=== PATIENT | male | born 1980 | race Caucasian/White ===

== ENCOUNTER → 2017-01-20 | Day surgery (SDC) | payer OTHER ==
[~2017-01-20] VITALS: Ht 182.9 cm; Wt 70.1 kg
[~2017-01-20] MED LIST: BACL10TA PO; BACL20TA PO; BISA10SU3 RECTAL; CEPH-459 PO; CHLORHEXIDINE GLUCONATE 2 % 1 PACK (2 CLOTHS) TOPICAL PRN; CIAL10TA PO; DO NOT ADM ANY ANTICOAGULANT DRUGS PRN; HYDR-3533 PO; INSULIN HUMAN REGULAR 1,000 UNITS/10 ML VIAL SQ PRN; LACTATED RINGER'S 1000 ML INJ 1,000 ML IV ONE; METOPROLOL TARTRATE 25 MG TAB PO PRN; MIRA50TA PO; MOBI15TA PO; NITR50CA27 PO; ONABOTULINUMTOXINA INJ 100 UNITS/VIAL ONE; ONDANSETRON HCL 4 MG/2 ML VIAL IV PUSH ONE; ONDANSETRON HCL 4 MG/2 ML VIAL IV PUSH PRN; POVIDONE IODINE 5% (ANTISEPSIS KIT) 4 APPLICATIONS EACH NARE PRN; PROPOFOL 200 MG/20 ML AMP IV ONE; REST15CA PO; SODIUM CHLORID 0.9% 500 ML IV PRN; SODIUM CHLORIDE 0.9% INJ 100 ML ONE; TIZA2TAB PO; TIZA4TAB PO; ceFAZolin 1,000 MG/NS 100 ML IV SCH; ceFAZolin INJ 1,000 MG VIAL ONE
[2017-01-20 06:37] VITALS: BP 99/54; PULSE 78; RESP 20; TEMP 97.9; O2SAT 96
[2017-01-20] MEDS: LACTATED RINGER'S 1000 ML IV PRN ×2 (06:40→06:42)
[2017-01-20 06:56] LABS: AUTOMATED NEUTROPHIL # 3.1 TH/MM3 (1.8-7.7); BASOPHIL % 0.6 % (0.0-2.0); EOSINOPHIL # 0.3 TH/MM3 (0-0.4); EOSINOPHIL % 5.2 % (0.0-4.0); HEMATOCRIT 43.7 % (39.0-51.0); HEMO FLAGS DIFF FINAL; LYMPH % 25.7 % (9.0-44.0); LYMPHOCYTE # 1.3 TH/MM3 (1.0-4.8); MEAN CELL VOLUME 89.8 FL (80.0-100.0); MEAN CORPUSCULAR HEMOGLOBIN 31.7 PG (27.0-34.0); MEAN CORPUSCULAR HGB CONC 35.3 % (32.0-36.0); MONO % 8.5 % (0.0-8.0); PLATELET COUNT 296 TH/MM3 (150-450); RED BLOOD COUNT 4.86 MIL/MM3 (4.50-5.90); RED CELL DISTRIBUTION WIDTH 12.8 % (11.6-17.2); WHITE BLOOD COUNT 5.1 TH/MM3 (4.0-11.0)
--- NOTE | 2017-01-20 09:26 | PD.OP ---
Operative Report Date of Surgery: Jan 20, 2017 Preoperative Diagnosis: (1) Neurogenic bladder Postoperative Diagnosis: (1) Neurogenic bladder Procedure: Cystoscopy and intravesical Botox injection therapy Anesthesia: General Surgeon: Faraz Ashley Grooming Assistant(s): None Operation and Findings: Indication for procedure: Case of a pleasant 36-year-old gentleman with hyper reflexive neurogenic bladder dysfunction who presents now for repeat intravesical Botox injection therapy to increase his bladder capacity. Operative procedure in detail: Patient was brought to the operating room suite and placed supine on the cystoscopy table. He was then placed under general anesthesia. He was then repositioned in the dorsal lithotomy position and prepped and draped in normal sterile fashion. After appropriate timeout was undertaken have proceeded with cystoscopic evaluation utilizing the rigid cystoscope with the 30 lens and 20 Ecuadorean sheath. The urethra was patent without stricture formation, the prostatic urethra was nonobstructing and further passage of the scope within the bladder failed to demonstrate any significant bladder pathology other than hypertrophy of the detrusor muscle. The alberans bridge was utilized as well as the 4 Ecuadorean flexible injection needle to administer the Botox intravesically. 2 vials of Botox were utilized and reconstituted in normal saline with a concentration of 10 units per cc for a total volume of 20 cc. The Botox injection sites were administered approximate 1 cm apart diffusely throughout the urinary bladder. Care was taken not to administered Botox in vicinity of the ureteral orifices. Once the Botox was administered careful inspection factor bleeding was made and no significant bleeding was noted. A 16 Ecuadorean 10 cc Ham catheter was placed and connected to gravity drainage. The patient tolerated the procedures without complications. Transferred to the PACU in satisfactory condition. Faraz Ashley MD Jan 20, 2017 09:26
[2017-01-20 10:57] VITALS: BP 118/71; PULSE 74; RESP 20; TEMP 97.8; O2SAT 99
== END | disposition home or self-care (01) ==
LOC: HSDC 06:00
PROVIDERS: ATTEND Urology
DX: N31.9 Neuromuscular dysfunction of bladder, unspecified (principal)
CPT/HCPCS: 00910; 52287; 85025; J0585; J0690; J2405; J3010; J7120

== ENCOUNTER → 2017-07-28 | Day surgery (SDC) | payer OTHER ==
[~2017-07-28] VITALS: Ht 182.9 cm; Wt 72.5 kg
[~2017-07-28] MED LIST changes: +ACETAMINOPHEN 1000 MG/100 ML 100 ML IV ONE; +DEXAMETHASONE SOD PHOS 4 MG/ML VIAL IV ONE; +GLYCOPYRROLATE 1 MG/5 ML SYRINGE IV PUSH ONE; -LACTATED RINGER'S 1000 ML INJ 1,000 ML IV ONE; +LACTATED RINGER'S 1000 ML IV PRN; +LIDOCAINE HCL 1% PF 5 ML AMPULE OTHER ONE; +MIDAZOLAM HCL 2 MG/2 ML VIAL IV ONE; -MOBI15TA PO; -NITR50CA27 PO; -ONABOTULINUMTOXINA INJ 100 UNITS/VIAL ONE; +ONABOTULINUMTOXINA INJ 100 UNITS/VIAL PRN; +PERC5TAB12 PO; +ROCURONIUM INJ 50 MG/5 ML SYRINGE IV PUSH ONE; +SODIUM CHLORIDE 0.9% 20 ML VIAL ONE; -SODIUM CHLORIDE 0.9% INJ 100 ML ONE; +SUGAMMADEX SODIUM 200 MG/2 ML VIAL IV PUSH ONE; -ceFAZolin INJ 1,000 MG VIAL ONE; +oxyCODONE/ACETAMINOPHEN 5 MG/325 MG TAB PO PRN
[2017-07-28 07:16] LABS: AUTOMATED NEUTROPHIL # 2.5 TH/MM3 (1.8-7.7); BASOPHIL % 0.4 % (0.0-2.0); EOSINOPHIL # 0.2 TH/MM3 (0-0.4); EOSINOPHIL % 5.1 % (0.0-4.0); HEMATOCRIT 45.2 % (39.0-51.0); HEMOGLOBIN 15.4 GM/DL (13.0-17.0); LYMPH % 29.8 % (9.0-44.0); LYMPHOCYTE # 1.4 TH/MM3 (1.0-4.8); MEAN CORPUSCULAR HEMOGLOBIN 31.6 PG (27.0-34.0); MEAN PLATELET VOLUME 7.7 FL (7.0-11.0); MONO % 10.1 % (0.0-8.0); MONOCYTE # 0.5 TH/MM3 (0-0.9); NEUT % 54.6 % (16.0-70.0); PLATELET COUNT 283 TH/MM3 (150-450); RED BLOOD COUNT 4.85 MIL/MM3 (4.50-5.90); RED CELL DISTRIBUTION WIDTH 12.4 % (11.6-17.2); WHITE BLOOD COUNT 4.6 TH/MM3 (4.0-11.0)
--- NOTE | 2017-07-28 09:12 | PD.OP ---
Operative Report Date of Surgery: Jul 28, 2017 Preoperative Diagnosis: (1) Neurogenic bladder Postoperative Diagnosis: (1) Neurogenic bladder Procedure: He and intravesical Botox injection therapy Anesthesia: General Surgeon: Faraz Ashley Customer Operations Representative(s): None Operation and Findings: Indication for procedure: Case of a pleasant 36-year-old gentleman with history neurogenic bladder dysfunction related to a spinal cord injury who presents today for cystoscopy with Botox injection therapy to increase his bladder filling capacity. Operative procedure in detail: Patient was brought to the operating room suite and placed supine on the or table. He was then placed under general anesthesia. He was then repositioned in the dorsolithotomy position and prepped and draped and also fashion. After appropriate timeout was undertaken I proceeded with cystoscopic evaluation utilizing the rigid cystoscope with the 20 Danish sheath and 30 lens. The urethra was patent without stricture formation, the prostatic urethra was nonobstructing, further passive cystoscope within the urinary bladder revealed both right and left ureteral orifices to be in correct anatomical position effluxing clear yellow urine. The bladder itself was mild to moderately trabeculated. I then proceeded with using the flexible 4 Danish needle and commenced adjuvant vesicle Botox injection therapy. A solution of 100 units of Botox in 10 cc normal saline was utilized and each injection site received approximately 1/2 cc. Each injected site was spaced approximately 1 cm from each other. The posterior, and lateral ortega were injected as well as several injections to the anterior wall. There was minimal bleeding from the injection sites. A total of 200 units of Botox was injected and after the injections were completed a 16 Danish 10 cc Ham catheter was placed and connected to gravity drainage. The patient tolerated the procedures without complications and was transferred to the PACU in satisfactory condition. Faraz Ashley MD Jul 28, 2017 09:12
[2017-07-28 10:30] VITALS: BP 129/64; PULSE 78; RESP 18; TEMP 97.8; O2SAT 100
== END | disposition home or self-care (01) ==
LOC: HSDC 06:05
PROVIDERS: ATTEND Urology
DX: N31.9 Neuromuscular dysfunction of bladder, unspecified (principal); Z01.818 Encounter for other preprocedural examination
CPT/HCPCS: 00910; 52287; 85025; J0131; J0585; J0690; J1100; J2250; J2405; J3010; J7120

== ENCOUNTER → 2017-12-01 | Day surgery (SDC) | payer OTHER ==
[~2017-12-01] VITALS: Ht 182.9 cm; Wt 72.5 kg
[~2017-12-01] MED LIST changes: +*MEPERIDINE 25 MG INJ VIAL PERIprocedural Use ONLY ONE; +ACETAMINOPHEN/HYDROcodone 325 MG/5 MG TAB PO PRN; +BACT800T5 PO; -DEXAMETHASONE SOD PHOS 4 MG/ML VIAL IV ONE; -GLYCOPYRROLATE 1 MG/5 ML SYRINGE IV PUSH ONE; -HYDR-3533 PO; -LIDOCAINE HCL 1% PF 5 ML AMPULE OTHER ONE; +LIDOCAINE HCL 1% PF 5 ML SYRINGE OTHER ONE; -MIDAZOLAM HCL 2 MG/2 ML VIAL IV ONE; +MIDAZOLAM HCL 2 MG/2 ML VIAL ONE; +NORC5TAB PO; +ONABOTULINUMTOXINA INJ 100 UNITS/VIAL ONE; -ONABOTULINUMTOXINA INJ 100 UNITS/VIAL PRN; +ONABOTULINUMTOXINA INJ 100 UNITS/VIAL SCH; +ONDANSETRON HCL 4 MG/2 ML VIAL IV ONE; -ONDANSETRON HCL 4 MG/2 ML VIAL IV PUSH ONE; -PERC5TAB12 PO; -ROCURONIUM INJ 50 MG/5 ML SYRINGE IV PUSH ONE; -SUGAMMADEX SODIUM 200 MG/2 ML VIAL IV PUSH ONE; +TRAM50 PO; -ceFAZolin 1,000 MG/NS 100 ML IV SCH; +ceFAZolin 2 GM PREMIX 50 ML IV SCH; -oxyCODONE/ACETAMINOPHEN 5 MG/325 MG TAB PO PRN; +traMADol HCL 50 MG TAB PO PRN
[2017-12-01 09:34] LABS: AUTOMATED NEUTROPHIL # 2.7 TH/MM3 (1.8-7.7); BASOPHIL % 0.4 % (0.0-2.0); EOSINOPHIL # 0.2 TH/MM3 (0-0.4); EOSINOPHIL % 5.2 % (0.0-4.0); HEMATOCRIT 46.6 % (39.0-51.0); HEMOGLOBIN 16.1 GM/DL (13.0-17.0); LYMPH % 23.5 % (9.0-44.0); LYMPHOCYTE # 1.1 TH/MM3 (1.0-4.8); MEAN CELL VOLUME 92.4 FL (80.0-100.0); MEAN CORPUSCULAR HEMOGLOBIN 31.9 PG (27.0-34.0); MEAN CORPUSCULAR HGB CONC 34.5 % (32.0-36.0); MEAN PLATELET VOLUME 7.8 FL (7.0-11.0); MONO % 9.7 % (0.0-8.0); MONOCYTE # 0.4 TH/MM3 (0-0.9); NEUT % 61.2 % (16.0-70.0); PLATELET COUNT 290 TH/MM3 (150-450); RED BLOOD COUNT 5.04 MIL/MM3 (4.50-5.90); RED CELL DISTRIBUTION WIDTH 12.8 % (11.6-17.2); WHITE BLOOD COUNT 4.5 TH/MM3 (4.0-11.0)
[2017-12-01] MEDS: ceFAZolin 1,000 MG/NS 100 ML IV SCH ×4 (11:19→12:14)
--- NOTE | 2017-12-01 12:04 | PD.OP ---
Operative Report Date of Surgery: Dec 01, 2017 Preoperative Diagnosis: (1) Neurogenic bladder Postoperative Diagnosis: (1) Neurogenic bladder Procedure: Cystoscopy and intravesical Botox injection therapy Anesthesia: General Surgeon: Faraz Ashley Human Resources Advisor(s): None Operation and Findings: Indication for procedures: Case of a pleasant 37-year-old gentleman with neurogenic bladder dysfunction who is presently being managed with intravesical Botox injection therapy to increase his bladder storage capacity. Patient presents today for repeat cystoscopy with Botox injection therapy. Operative procedures in detail: Patient was brought to the operating room suite and placed supine on the cystoscopy table. He was then placed under general anesthesia. He was then repositioned in the dorsal lithotomy position and prepped and draped in normal sterile fashion. After an appropriate timeout was undertaken I proceeded with cystoscopic evaluation utilizing the rigid cystoscope with a 19 Uzbek sheath and 30 lens. The urethra was patent without stricture formation, the prostatic urethra was not obstructed and further passive cystoscope within the bladder revealed both right and left ureteral orifices to be in correct anatomic position draining clear yellow urine. There were no bladder mucosal lesions, calculi or diverticula formation. The bladder itself was mild to moderately trabeculated. I then proceeded with intravesical Botox injections utilizing the Coloplast 5 mm needle. A solution of Botox with 100 units in 10 cc normal saline was utilized. A total of 200 units was administered and incrementally injected throughout the bladder. Each injection site was approximately half of a cc and spaced approximately 1 cm apart. The conclusion of the procedure there was some oozing of blood from the injection sites and a 16 Uzbek 10 cc Ham catheter was placed. The patient tolerated the procedures without complications and was transferred to the PACU in satisfactory condition. Faraz Ashley MD Dec 01, 2017 12:04
[2017-12-01 13:40] VITALS: BP 102/63; PULSE 75; RESP 18; TEMP 97.5; O2SAT 100
== END | disposition home or self-care (01) ==
LOC: HSDC 08:25
PROVIDERS: ATTEND Urology
DX: N31.9 Neuromuscular dysfunction of bladder, unspecified (principal)
CPT/HCPCS: 00910; 52287; 85025; J0131; J0585; J0690; J2175; J2250; J2405; J3010; J7120